=== PATIENT | male | born 1990 | race African-American/Black ===

== ENCOUNTER 2017-12-14 19:16 | Emergency (ER) | payer SELFPAY ==
[2017-12-14 19:16] VITALS: BP 133/88; PULSE 76; RESP 18; TEMP 36.7; O2SAT 99; BMI 22.3
--- NOTE | 2017-12-14 19:33 | ED.VISSUMM ---
- ER Visit Summary Date of Service: 12/14/17 Chief Complaint: Paronychia History of Present Illness: The patient is a 27 M with no primary care physician. He reports he has paronychia right thumb that began approximately 1 week ago. He is an aching, throbbing pain that is 7 out of 10 at rest and 9 at 10 when he bumps it. Is relieved with ibuprofen. He denies any fever, chills, nausea or vomiting. Physical Examination: Vitals: Stable. Afebrile. General: Well-nourished and well-developed. Head: Normocephalic atraumatic. Neck: Supple, no lymphadenopathy. No JVD. Nontender. Cardiovascular: Regular rate and rhythm. No murmurs. Respiratory: No respiratory distress. Clear to auscultation bilaterally. Abdominal: Soft, nontender, nondistended, normal bowel sounds. No guarding, rebound, or peritoneal signs. Back: Nontender. Extremities: Nontender, no edema. Skin: Small paronychia on the ulnar side of his right thumb. There is no surrounding erythema or drainage. Neurologic: Alert and oriented ?3. Cranial nerves II through XII are intact. Normal strength and sensation. Psych: Normal affect. Emergency Department Course and Treatment: Patient was treated with Vernon and had an I&D performed. He tolerated it well. Treatment Plan: Patient will be discharged instructions to follow-up Dr. Biju Sánchez in 1 week if not improving. Return to the emergency department for any worsening symptoms. Disposition: To home in improved and stable condition. Impression: 1. Paronychia right thumb. 2. I&D. Procedure note: Skin was cleansed with chlorhexidine soap. An 11 blade was used to make an incision between the nail and the eponychial fold. A small amount of pus drained. It was irrigated. Patient tolerated this well. This note was generated with [employer] dictation software. It may contain incorrect words, spelling, and punctuation that were not noted in review of the chart prior to signing ED Disposition - Plan for ED Patient: Disposition: Home or Assisted Living Chief Complaint: Abscess Instructions: ED Fingernail Infec Prescriptions: Hydrocodone Bitart/Apap 5-325 [Vernon 5MG-325MG] 1 tablet PO Q4H PRN PRN 2 Days #10 tablet PRN Reason: Pain Referrals: Biju Sánchez MD [STAFF PHYSICIAN] - 3-5 Days if not improving
[2017-12-14] MEDS: HYDROcodone Bitartrate/Apap 5/325 Tablet PO (19:42)
[2017-12-14 20:04] VITALS: RESP 16
== END 2017-12-14 20:06 | disposition home or self-care (01) ==
PROVIDERS: Emergency Provider Emergency Medicine
DX: L03.011 Cellulitis of right finger (principal); Z72.0 Tobacco use
CPT/HCPCS: 10060; 99283

== ENCOUNTER 2017-12-16 21:24 | Emergency (ER) | payer SELFPAY ==
[2017-12-16 21:25] VITALS: BP 132/60; PULSE 68; RESP 14; TEMP 36.7; O2SAT 97; BMI 22.0
--- NOTE | 2017-12-17 01:46 | CT_ITS ---
STUDY: CT SOFT TISSUE NECK WITH CONTRAST REASON FOR EXAM: Male, 27 years old. Swelling below the right ear RADIATION DOSAGE (If Supplied By Facility): CTDIvol = ( 16.10 ) mGy, DLP = ( 381.84 ) mGycm TECHNIQUE: The patient was scanned in a multi-detector CT scanner. High resolution transaxial imaging was performed following intravenous administration of 50 ml of Isovue 370 contrast material. Sagittal and coronal images were reconstructed. Individualized dose optimization techniques were used for this CT. COMPARISON: None. FINDINGS: On image 66 of series 2, a faint round hypodensity is noted in the superficial lobe of the right parotid gland measuring 18 x 11 mm on image 66 of series 2. Additionally, the right parotid gland is swollen and somewhat indurated. Parotitis could have this appearance. Underlying evolving parotid phlegmon or small abscess may be present in the superficial lobe. Findings of adjacent cellulitis are suggested. Normal bilateral aba tutor spaces. Normal bilateral parapharyngeal spaces. Normal bilateral carotid spaces. Normal bilateral sublingual and submandibular glands and spaces. Normal visualized nasopharynx. Normal retropharyngeal space. Normal perivertebral space. Normal visualized bilateral faucial tonsils. The visualized tongue, tongue base and oropharynx are normal. The visualized cervical lymph nodes (levels I-) are within normal size limits, and maintain normal morphology. There is no demonstrated solid or cystic mass lesion. There is no abnormal contrast enhancement. Normal epiglottis, bilateral vallecula and hypopharynx. The pre-epiglottic and paraglottic adipose spaces are normal. Normal visualized bilateral piriform sinuses, aryepiglottic folds, vocal cords, and arytenoid-cricoid articulations. Normal subglottic trachea. Normal bilateral lobes of the thyroid gland. Normal visualized pulmonary apices. Normal visualized paranasal sinuses. Normal visualized cervical spine. CT/Soft Tissue Neck WITH Contrast IMPRESSION: CT findings could suggest right-sided parotitis with possible evolving phlegmon or small abscess in the superficial lobe. Adjacent cellulitis is also suggested. Electronically Signed: Simon Hall MD at 3:04 EDT Tel , Service support ,
[2017-12-17 02:00] VITALS: RESP 16
[2017-12-17] MEDS: Morphine 4 MG/ML Syringe IV (02:20)
[2017-12-17] MEDS: Ondansetron 4 MG/2 ML Vial IV (02:20)
--- NOTE | 2017-12-17 03:13 | ED.VISSUMM ---
- ER Visit Summary Date of Service: 12/17/17 Chief Complaint: Pain and swelling near right ear History of Present Illness: The patient is a 27 M who presents with pain swelling anterior and inferior right ear. He denies fever or chills. He denies ringing in his ears, decreased hearing or any drainage. He denies any dental pain or odor to his breath. He states he is able to open his mouth completely. His teeth line up when he closes his mouth. He believes all of his shots are up-to-date. He has no history rheumatic fever, he denies history of heart murmur, SPE or being immune suppressed. He denies any skin lesions. Physical Examination: There is slight erythema and warmth anterior inferior right ear with bogginess question fluctuance. Milking of the parotid gland causes him significant pain with no discharge or drainage from Konstantin's duct. There is no obvious cavities noted. There is no fetid odor to his breath. Uvula is midline. There is no exudate. There is no evidence of trismus. There is no anterior cervical lymphadenopathy. Trachea is midline. There is no stridor. Heart is regular without murmur, gallop or rub. S1 and S2 are normal. Lungs are clear to auscultation with good movement of air bilaterally. Test Results: CT findings could suggest right-sided parotitis with possible evolving phlegmon or small abscess in the superficial lobe. Adjacent cellulitis is also suggested. Emergency Department Course and Treatment: The area was not anesthetized. Needle aspirate was attempted with no return of fluid. Since there is a concern this may represent an infected parotid gland CT was obtained. Treatment Plan: 1 g of Rocephin IV piggyback. Prescription for Percocet and Augmentin 875 mg. Disposition: Dr. Syed Aly on-call for otolaryngology was paged and informed of patient's history, physical findings and CT results. Impression: Right suppurative parotiditis This note was generated with [employer] dictation software. It may contain incorrect words, spelling, and punctuation that were not noted in review of the chart prior to signing ED Disposition - Plan for ED Patient: Disposition: Home or Assisted Living Chief Complaint: Other, Pain/Inj Instructions: ED Submandibular Gland Infec Prescriptions: Oxycodone HCl/Acetaminophen [Percocet 5/325] 1 tab PO Q6H PRN PRN 3 Days #12 tab PRN Reason: Pain Amoxicillin/Potassium Clav [Augmentin 875-125 Tablet] 1 ea PO BID #20 tab Referrals: Care Physician,No Primary [Primary Care Provider] - Syed Aly MD [STAFF PHYSICIAN] - 3-5 Days
[2017-12-17] MEDS: Ceftriaxone 1 GM/50 ML BAG IV (03:24)
[2017-12-17 04:31] VITALS: BP 128/64; PULSE 70; RESP 16; O2SAT 100
== END 2017-12-17 04:31 | disposition home or self-care (01) ==
PROVIDERS: Emergency Provider Emergency Medicine
DX: K11.21 Acute sialoadenitis (principal)
CPT/HCPCS: 70491; 96361; 96365; 96375; 99282; J7030; Q9967; A4216; J2405

== ENCOUNTER 2018-12-26 14:42 | Emergency (ER) | payer SELFPAY ==
[2018-12-26 14:43] VITALS: BP 134/87; PULSE 70; RESP 16; TEMP 36.3; O2SAT 96; BMI 21.9
--- NOTE | 2018-12-26 15:03 | ED.DCSUM_ITS ---
- ER Visit Summary Date of Service: 12/26/18 Chief Complaint: Penile discharge and dysuria History of Present Illness: The patient is a 28 M with no primary care physician. He reports that for the past 2 weeks he has had a yellow penile discharge and dysuria. He is concerned that he was exposed to an STD. He reports that he has a single female sexual partner that he is having unprotected intercourse with. He denies any sores on his penis. No testicular pain. No fever, chills, sore throat, or rash. Physical Examination: Vitals: Stable. Afebrile. General: Well-nourished and well-developed. Head: Normocephalic atraumatic. Neck: Supple, no lymphadenopathy. No JVD. Nontender. Cardiovascular: Regular rate and rhythm. No murmurs. Respiratory: No respiratory distress. Clear to auscultation bilaterally. Abdominal: Soft, nontender, nondistended, normal bowel sounds. No guarding, rebound, or peritoneal signs. : Normal circumcised male. No lesions. No testicular or epididymal tenderness. Back: Nontender. Extremities: Nontender, no edema. Skin: Normal color, no rash. Neurologic: Alert and oriented ?3. Cranial nerves II through XII are intact. Normal strength and sensation. Psych: Normal affect. Test Results: GC and Chlamydia were sent. Emergency Department Course and Treatment: Patient was treated with Rocephin and Zithromax. Treatment Plan: Patient will be discharged instructions to follow-up with the [facility] in 2 days for results of his tests. He is instructed not to have sex with his partner again until he knows the results and she is treated. Return to the emergency department for any worsening symptoms. Disposition: To home in improved and stable condition. Impression: 1. Penile discharge. This note was generated with [employer] dictation software. It may contain incorrect words, spelling, and punctuation that were not noted in review of the chart prior to signing ED Disposition - Plan for ED Patient: Instructions: URETHRITIS, Male (Infec vs Inflam), Adult Referrals: Katharine Reece [NON-STAFF] - 3-5 Days if not improving
[2018-12-26] MEDS: Azithromycin 250 MG Tablet 1000 MG PO (16:03)
[2018-12-26] MEDS: Ceftriaxone 500 MG Vial 250 MG IM (16:03)
[2018-12-26 17:05] LABS: Neisserai gonorrhoeae by PCR Negative (Negative); Probe Check PASS
[2018-12-26 17:07] LABS: Chlamydia Trachomatis by PCR POSITIVE (Negative)
--- NOTE | 2018-12-26 18:48 | ED.RN ---
ATTEMPT MADE TO CONTACT PATIENT TO MAKE HIM AWARE OF HIS POSITIVE CHLAMYDIA RESULT. AN AUTOMATED RESPONSE WHEN THE PHONE RANG STATED THAT PATIENT HAS BLOCKING RESTRICTIONS ON HIS PHONE AND THE CALL COULD NOT BE COMPLETED.
== END 2018-12-26 16:27 | disposition home or self-care (01) ==
LOC: ED 15:27
PROVIDERS: Emergency Provider Emergency Medicine
DX: R36.9 Urethral discharge, unspecified (principal); R30.0 Dysuria; Z20.2 Contact with and (suspected) exposure to infections with a predominantly sexual mode of transmission; F17.200 Nicotine dependence, unspecified, uncomplicated
CPT/HCPCS: 87491; 87591; 96372; 99283

== ENCOUNTER 2020-12-01 10:36 | Emergency (ER) | payer BC, SELFPAY ==
[2020-12-01 10:37] VITALS: BP 135/89; PULSE 68; RESP 16; TEMP 37; O2SAT 100; BMI 23.6
--- NOTE | 2020-12-01 11:18 | EX.ED.DYSGE1 ---
HPI History of Present Illness Chief Complaint: Abscess Informant: patient Narrative Narrative: Patient is a 30-year-old male who is previously healthy. He presents to the emergency department for abscess just under his right ear. He has had this before a few months prior. It did require incision and drainage. This episode occurred 2 to 3 days ago. It is tender to the touch. He has not had any drainage from the area. He denies any ear pain or ringing. No headache or stiff neck. No pain going down his neck. He denies a sore throat or difficulty swallowing. No chest pain or shortness of breath. He has not tried taking anything for this. PFSH PFSH Home Medications cephalexin 500 mg PO Q6H 7 Days #28 cap 12/01/20 [Rx Last Taken Unknown] naproxen [Naprosyn] 500 mg PO BID PRN #20 tab 12/01/20 [Rx Last Taken Unknown] sulfamethoxazole-trimethoprim [Bactrim DS] 1 tab PO BID 7 Days #14 tab 12/01/20 [Rx Last Taken Unknown] Allergy/AdvReac Type Severity Reaction Status Date / Time No Known Allergies Allergy Verified 12/01/20 10:39 Social History Smoking Status: Current some day smoker tobacco type: cigarettes ROS ROS ED Constitutional Constitutional ED: Denies chills or fever(s) Eyes Eyes: Denies change in vision ENT ENT ED: Denies epistaxis or rhinorrhea Cardiovascular Cardiovascular: Denies chest pain or palpitations Respiratory/Chest Respiratory/Chest: Denies cough, dyspnea or dyspnea on exertion Gastrointestinal Gastrointestinal: Denies abdominal pain, nausea or vomiting Musculoskeletal Musculoskeletal: Denies back pain or neck pain Integumentary Denies rash Neurologic Neurologic: Denies dizziness, headache(s) or weakness EXAM Physical Exam Const Vital Signs: 12/01/20 10:37 Temperature 98.6 F Temperature Source Temporal Pulse Rate 68 Respiratory Rate 16 Blood Pressure 135/89 H Blood Pressure Mean 104 Pulse Ox 100 Oxygen Delivery Method Room Air Positive well nourished and well developed General Appearance ED: well developed and NAD HEENT Reports normocephalic, head/scalp atraumatic and moist mucous membranes HEENT Narrative: Just inferior to the right ear there is swelling, abscess. There is a fluid collection seen on bedside ultrasound. Vasculature is appreciated on the ultrasound and posterior to the purulent collection. Tympanic membrane's are clear bilaterally. No mastoid process tenderness. Oropharynx is clear and uvula is midline. Eyes PERRL and EOMs intact bilaterally Neck no lymphadenopathy and supple General: Negative for tenderness Chest Wall inspection of chest normal Resp normal respiratory effort and clear to auscultation bilaterally Auscultation: Negative for rales, rhonchi or wheezes Cardio regular rate, regular rhythm and no murmurs GI normal to inspection, nondistended, normoactive bowel sounds and non-tender Palpation: soft; Negative for guarding or rebound tenderness present Back/Spine no CVA tenderness Extremity normal to inspection Neuro CN's II-XII intact bilaterally and no sensory deficits noted Sensorium / Orientation: alert Motor Exam: strength 5/5 throughout Psych mental status grossly normal Skin no rashes or lesions noted MDM MDM MDM Narrative Medical decision making narrative: Patient presents to the ED for abscess just inferior to right ear. Upon arrival to the emergency department vital signs within normal limits. Is in no acute distress. EMLA cream is applied to the area. The area is cleaned with alcohol pad. Using an 18-gauge needle purulent material is aspirated. A moderate amount of purulent discharge was able to be expelled post aspiration. Patient tolerated this well without any acute complications. He will be placed on antibiotics and he is given ENT referral for follow-up. Return precautions are reviewed with him including any difficulty swallowing, spreading down his neck, fevers. He understands and is agreeable this plan. Discharged home in stable condition. All questions were answered. Discharge Plan Triage Chief Complaint: Abscess ED Provider: Bimal Avila Dx/Rx/DC Orders Clinical Impression: Abscess Instructions: Abscess Drainage Prescriptions: New sulfamethoxazole-trimethoprim [Bactrim DS] 800-160 mg tablet 1 tab PO BID 7 Days Qty: 14 RF: 0 cephalexin 500 mg capsule 500 mg PO Q6H 7 Days Qty: 28 RF: 0 naproxen [Naprosyn] 500 mg tablet 500 mg PO BID PRN (Reason: pain) Qty: 20 RF: 0 Primary Care Provider: Care Physician,No Primary Referrals: Ben Meza MD [STAFF PHYSICIAN] - 3-5 Days Care Physician,No Primary [Primary Care Provider] - Disposition Disposition: Home, Self Care Discharge Date/Time: 12/01/20 12:35
[2020-12-01] MEDS: Lidocaine/Prilocaine HCl 5 GM Tube TOPICAL (11:33)
== END 2020-12-01 12:35 | disposition home or self-care (01) ==
PROVIDERS: Emergency Provider Emergency Medicine
DX: H60.01 Abscess of right external ear (principal); F17.210 Nicotine dependence, cigarettes, uncomplicated
CPT/HCPCS: 99282